=== PATIENT | male | born 1965 | race African-American/Black ===

== ENCOUNTER 2017-11-20 17:46 | Inpatient (IN) | payer OTHER ==
[~2017-11-20] VITALS: Ht 190.5 cm; Wt 116.4 kg
[2017-11-20 19:23] LABS: PLATELET COUNT 181 x10^3mcL (130-400)
[2017-11-20 19:47] LABS: RED CELL DISTRIBUTION WIDTH 14.8 % (11.5-14.5)
[2017-11-20 19:47] LABS: CK-MB < 0.5 ng/mL (0-3.6); CREATINE KINASE 93 U/L (39-308)
[2017-11-20 19:49] LABS: BILIRUBIN TOTAL 0.8 mg/dL (0.20-1.00); CALCIUM 8.5 mg/dL (8.5-10.1); CREATININE SERUM 3.1 mg/dL (0.7-1.3); POTASSIUM SERUM 4.4 mmol/L (3.5-5.1); TOTAL PROTEIN, SERUM 8.4 g/dL (6.4-8.2)
[2017-11-20 19:50] LABS: ALBUMIN 2.2 g/dL (3.4-5.0)
[2017-11-20 20:07] LABS: BAND NEUTROPHIL 5 % (0-10); METAMYELOCTE 2 % (0-2); MONOCYTE 4 % (0-7); MYELOCYTE 1 % (0-2); SEGMENTED NEUTROPHILS 80 % (37-75)
[2017-11-20 20:08] LABS: PLATELET MORPHOLOGY LARGE PLATELET SEEN; rbc morphology (normal/abnorm) NORMAL (NORMAL)
[2017-11-20 21:11] LABS: PHOSPHOROUS 2.1 mg/dL (2.5-4.9)
[2017-11-20 21:12] LABS: CHOLESTEROL/HDL RATIO 4.5
[2017-11-20 21:15] VITALS: BP 137/78
[2017-11-20 21:18] VITALS: Ht 190.5 cm; Wt 116.4 kg
[2017-11-20 21:19] LABS: T3 TOTAL 1.47 ng/mL
[2017-11-20 21:23] LABS: FREE T4 2.11 ng/dL (0.76-1.46)
[2017-11-20 21:26] LABS: FREE THYROXINE INDEX 4.8 ug/dL (1.4-4.5); T4(THYROXINE) 14.2 ug/dL (4.7-13.3)
[2017-11-21] VITALS (7 sets, daily range): BP systolic 110–155; BP diastolic 72–96
[2017-11-21] MEDS ORDERED: ATENOLOL50 MG PO (05:04)
[2017-11-21] MEDS ORDERED: OMEPRAZOLE20 M4 PO (05:05)
[2017-11-21] MEDS ORDERED: CLONIDINE HCL0.1 MG PO (05:05)
[2017-11-21] MEDS ORDERED: DESCOVY 200-251 EACH PO (05:07)
[2017-11-21] MEDS ORDERED: NORV PO (05:09)
[2017-11-21] MEDS ORDERED: LANTUS SOLOS100 U/M1 SQ (05:11)
[2017-11-21] MEDS ORDERED: ISENTRESS100 MG PO (05:11)
[2017-11-21 06:58] LABS: CALCIUM 7.9 mg/dL (8.5-10.1); CARBON DIOXIDE 20.5 mmol/L (21-32); CREATININE SERUM 3.2 mg/dL (0.7-1.3); PHOSPHOROUS 2.7 mg/dL (2.5-4.9); POTASSIUM SERUM 4.3 mmol/L (3.5-5.1)
[2017-11-21 07:23] LABS: PLATELET COUNT 167 x10^3mcL (130-400); RED CELL DISTRIBUTION WIDTH 14.5 % (11.5-14.5)
[2017-11-21 07:42] LABS: AMPHETAMINE QUAL UR NONE DETECTED (NEG <=1000)
[2017-11-21 08:37] LABS: microscopic required? YES; urine erythrocyte NEGATIVE (NEGATIVE)
[2017-11-21 13:30] LABS: BAND NEUTROPHIL 14 % (0-10); BASOPHIL 0 % (0-2); METAMYELOCTE 1 % (0-2); MONOCYTE 6 % (0-7); SEGMENTED NEUTROPHILS 70 % (37-75)
[2017-11-21 13:31] LABS: burr cell (echinocyte) 1+; rbc morphology (normal/abnorm) ABNORMAL (NORMAL)
[2017-11-21 13:32] LABS: PLATELET MORPHOLOGY GIANT PLATELET SEEN; tear drop cell (dacryocyte) 1+
[2017-11-21] MEDS ORDERED: PREZISTA600 M1 PO (14:06)
[2017-11-22 05:59] VITALS: BP 129/77
[2017-11-22 07:15] LABS: PLATELET COUNT 170 x10^3mcL (130-400)
[2017-11-22 07:21] LABS: CALCIUM 8.2 mg/dL (8.5-10.1); CARBON DIOXIDE 20.1 mmol/L (21-32); CREATININE SERUM 2.7 mg/dL (0.7-1.3); POTASSIUM SERUM 4.4 mmol/L (3.5-5.1)
[2017-11-22 08:16] LABS: RED CELL DISTRIBUTION WIDTH 14.6 % (11.5-14.5)
[2017-11-22 09:42] VITALS: BP 129/73
[2017-11-22 10:20] LABS: ATYPICAL LYMPH 1 %; BAND NEUTROPHIL 1 % (0-10); BASOPHIL 0 % (0-2); MONOCYTE 4 % (0-7); SEGMENTED NEUTROPHILS 85 % (37-75); rbc morphology (normal/abnorm) ABNORMAL (NORMAL)
[2017-11-22 10:21] LABS: PLATELET MORPHOLOGY PLATELETS DECREASED
[2017-11-22 13:53] LABS: PLATELET COUNT 188 x10^3mcL (130-400)
[2017-11-22 14:00] LABS: RED CELL DISTRIBUTION WIDTH 14.9 % (11.5-14.5)
[2017-11-22 14:33] LABS: SEGMENTED NEUTROPHILS 85 % (37-75)
[2017-11-22 14:34] LABS: ATYPICAL LYMPH 1 %; BAND NEUTROPHIL 1 % (0-10); BASOPHIL 0 % (0-2); MONOCYTE 4 % (0-7); rbc morphology (normal/abnorm) ABNORMAL (NORMAL)
[2017-11-22 14:35] LABS: PLATELET MORPHOLOGY D
[2017-11-22 17:44] VITALS: BP 141/82
[2017-11-22 21:31] VITALS: BP 124/72
[2017-11-23 05:48] VITALS: BP 148/77
[2017-11-23 07:32] LABS: CALCIUM 7.8 mg/dL (8.5-10.1); CARBON DIOXIDE 20.9 mmol/L (21-32); CREATININE SERUM 2.5 mg/dL (0.7-1.3); POTASSIUM SERUM 4.5 mmol/L (3.5-5.1)
[2017-11-23 07:42] LABS: PLATELET COUNT 178 x10^3mcL (130-400)
[2017-11-23 07:44] LABS: RED CELL DISTRIBUTION WIDTH 14.6 % (11.5-14.5)
[2017-11-23 09:30] VITALS: BP 149/80
[2017-11-23 10:36] LABS: ATYPICAL LYMPH 2 %; BAND NEUTROPHIL 5 % (0-10); BASOPHIL 0 % (0-2); METAMYELOCTE 2 % (0-2); MONOCYTE 8 % (0-7); MYELOCYTE 1 % (0-2); SEGMENTED NEUTROPHILS 60 % (37-75)
[2017-11-23 10:38] LABS: PLATELET MORPHOLOGY PLATELETS NORMAL
[2017-11-23 11:15] LABS: rbc morphology (normal/abnorm) NORMAL (NORMAL)
[2017-11-23 17:10] VITALS: BP 143/82
[2017-11-23 21:40] VITALS: BP 145/86
[2017-11-24 05:11] VITALS: BP 136/81
[2017-11-24 06:14] LABS: BASOPHIL % 0.1 % (0-2); PLATELET COUNT 190 x10^3mcL (130-400)
[2017-11-24 06:49] LABS: CALCIUM 8.1 mg/dL (8.5-10.1); CARBON DIOXIDE 20.8 mmol/L (21-32); CREATININE SERUM 2.1 mg/dL (0.7-1.3); MAGNESIUM 1.7 mg/dL (1.8-2.4); PHOSPHOROUS 2.7 mg/dL (2.5-4.9); POTASSIUM SERUM 4.7 mmol/L (3.5-5.1)
[2017-11-24 09:00] VITALS: BP 150/83
[2017-11-24 12:56] VITALS: BP 153/93
[2017-11-24 17:10] VITALS: BP 152/86
[2017-11-24 21:31] VITALS: BP 145/89
[2017-11-25 05:42] VITALS: BP 150/87
[2017-11-25 09:10] VITALS: BP 167/87
[2017-11-25 13:48] VITALS: BP 135/89
[2017-11-25 17:19] VITALS: BP 149/89
[2017-11-25 20:50] VITALS: BP 129/91
[2017-11-25 20:58] LABS: BASOPHIL % 0.4 % (0-2); PLATELET COUNT 230 x10^3mcL (130-400)
[2017-11-25 21:03] LABS: CALCIUM 8.4 mg/dL (8.5-10.1); CARBON DIOXIDE 20.8 mmol/L (21-32); POTASSIUM SERUM 4.5 mmol/L (3.5-5.1)
[2017-11-25 21:08] LABS: RED CELL DISTRIBUTION WIDTH 14.9 % (11.5-14.5)
[2017-11-26 05:56] VITALS: BP 132/78
[2017-11-26 05:56] LABS: BASOPHIL % 0.3 % (0-2); PLATELET COUNT 222 x10^3mcL (130-400); RED CELL DISTRIBUTION WIDTH 14.5 % (11.5-14.5)
[2017-11-26 06:19] LABS: CALCIUM 7.9 mg/dL (8.5-10.1); CARBON DIOXIDE 19.8 mmol/L (21-32); MAGNESIUM 1.4 mg/dL (1.8-2.4); PHOSPHOROUS 2.8 mg/dL (2.5-4.9); POTASSIUM SERUM 4.9 mmol/L (3.5-5.1)
[2017-11-26 09:08] VITALS: BP 128/80
[2017-11-26 17:39] VITALS: BP 125/69
[2017-11-26 19:10] VITALS: BP 135/84
[2017-11-27 06:17] VITALS: BP 134/80
[2017-11-27 07:18] LABS: BASOPHIL % 0.3 % (0-2); PLATELET COUNT 213 x10^3mcL (130-400)
[2017-11-27 07:19] LABS: RED CELL DISTRIBUTION WIDTH 14.6 % (11.5-14.5)
[2017-11-27 07:33] LABS: CALCIUM 8.3 mg/dL (8.5-10.1); CARBON DIOXIDE 20.9 mmol/L (21-32); CREATININE SERUM 1.9 mg/dL (0.7-1.3); MAGNESIUM 1.7 mg/dL (1.8-2.4); POTASSIUM SERUM 4.8 mmol/L (3.5-5.1)
[2017-11-27 09:30] VITALS: BP 139/77
[2017-11-27] MEDS ORDERED: AMERINET CHOICE1 PD3 IV (16:07)
[2017-11-27] MEDS ORDERED: AMERINET CHOIC500 MG IV (16:08)
[2017-11-27] MEDS ORDERED: LAC PO (16:32)
[2017-11-27 17:25] VITALS: BP 139/77
[2017-11-27 19:00] VITALS: BP 148/80
[2017-11-27 21:25] VITALS: BP 135/74
== END 2017-11-28 01:30 | DRG 720 ==
LOC: ED 17:46 → DU 19:42 → MU 19:42 → DU 20:50 → MU 11-21 10:17
PROVIDERS: Emergency Medicine; Family Medicine; Family Medicine Sports Medicine; Podiatrist Foot & Ankle Surgery
PROC: 0JBR0ZZ Excision of Left Foot Subcutaneous Tissue and Fascia, Open Approach (ICD-10-PCS; principal; 2017-11-21 07:30)
PROC: 0JBR0ZZ Excision of Left Foot Subcutaneous Tissue and Fascia, Open Approach (ICD-10-PCS; 2017-11-22)
PROC: 0JBQ0ZZ Excision of Right Foot Subcutaneous Tissue and Fascia, Open Approach (ICD-10-PCS; 2017-11-22)
DX: A41.9 Sepsis, unspecified organism (principal); N17.0 Acute kidney failure with tubular necrosis; E43 Unspecified severe protein-calorie malnutrition; D68.69 Other thrombophilia; E11.22 Type 2 diabetes mellitus with diabetic chronic kidney disease; E11.51 Type 2 diabetes mellitus with diabetic peripheral angiopathy without gangrene; M86.172 Other acute osteomyelitis, left ankle and foot; E11.621 Type 2 diabetes mellitus with foot ulcer; E11.65 Type 2 diabetes mellitus with hyperglycemia; E87.1 Hypo-osmolality and hyponatremia; L97.421 Non-pressure chronic ulcer of left heel and midfoot limited to breakdown of skin; R65.20 Severe sepsis without septic shock; E83.39 Other disorders of phosphorus metabolism; F17.210 Nicotine dependence, cigarettes, uncomplicated; Z79.4 Long term (current) use of insulin; Z68.32 Body mass index [BMI] 32.0-32.9, adult; K21.9 Gastro-esophageal reflux disease without esophagitis; I12.9 Hypertensive chronic kidney disease with stage 1 through stage 4 chronic kidney disease, or unspecified chronic kidney disease; N18.9 Chronic kidney disease, unspecified; E05.90 Thyrotoxicosis, unspecified without thyrotoxic crisis or storm; Z89.432 Acquired absence of left foot; E11.69 Type 2 diabetes mellitus with other specified complication
CPT/HCPCS: 82962; 83880; 84439; 87804; 94150; 97110-GP; 97116-GP; 97530-GP; J0456; J1170; J1644; J1815; J2250; J2405; J2543; J2704; J3010; J3475; J3490; J7030; J7042; Q0092